=== PATIENT | female | born 1990 | race African-American/Black ===

== ENCOUNTER 2020-02-07 12:59 | Emergency (ER) | payer SELFPAY ==
[~2020-02-07] VITALS: Ht 152.4 cm; Wt 61.2 kg
[2020-02-07] MEDS ORDERED: ASPIRIN 325 MG TAB PO ONE (13:30)
[2020-02-07] MEDS ORDERED: ASPIRIN 325 MG TAB ONE (13:30)
[2020-02-07] MEDS ORDERED: IOPAMIDOL 370 MG/ML 200 ML INFUS..BTL INJ ONE (13:38)
[2020-02-07] MEDS ORDERED: SODIUM CHLORIDE 0.9% 50ML 50 ML ONE (13:38)
[2020-02-07] MEDS ORDERED: LISINOPRIL10 MG PO (15:37)
[2020-02-07] MEDS ORDERED: LASIX20 MG PO (15:37)
[2020-02-07] MEDS ORDERED: POTASSIUM CHLORIDE 20 MEQ TAB CR PO STA (15:38)
[2020-02-07] MEDS ORDERED: POTASSIUM CHLORIDE 20 MEQ TAB CR PO ONE (15:51)
== END 2020-02-07 15:51 | disposition home or self-care (01) ==
LOC: FSED 13:30
DX: R07.9 Chest pain, unspecified (principal); J90 Pleural effusion, not elsewhere classified; M32.9 Systemic lupus erythematosus, unspecified
CPT/HCPCS: 71260; 80053; 81025; 84484; 85025; 93005; 99284; Q9967